=== PATIENT | male | born 1960 | race Caucasian/White ===

== ENCOUNTER 2019-03-08 06:52 | Day surgery (SDC) | payer OTHER ==
[2019-03-04 13:23] VITALS: BMI 34.5
[~2019-03-08 06:52] MED LIST: BUPIVACAINE 0.25% /EPI 1:200,000 10 ML VIAL INF ONE
[2019-03-08] MEDS ORDERED: BUPIVACAINE HCL/EPINEPHRINE/PF 30 ML VIAL IJ ONE (07:30)
[2019-03-08] MEDS ORDERED: fentaNYL CITRATE 250 MCG/5 ML VIAL ONE (08:40)
[2019-03-08] MEDS ORDERED: SUCCINYLCHOLINE CHLORIDE 200 MG/10 ML SYRINGE ONE (08:40)
[2019-03-08] MEDS ORDERED: PROPOFOL 20 ML ONE ×2 (08:40)
[2019-03-08] MEDS ORDERED: MIDAZOLAM HCL 2 MG/2 ML SINGLE DOSE VIAL ONE (08:41)
[2019-03-08] MEDS ORDERED: ceFAZolin SODIUM 1 GM VIAL IVPB ONE (08:59)
[2019-03-08] MEDS ORDERED: ceFAZolin SODIUM 1 GM VIAL ONE (09:01)
[2019-03-08] MEDS ORDERED: BUPIVACAINE 0.25% /EPI 1:200,000 10 ML VIAL INF ONE (09:18)
[2019-03-08] MEDS ORDERED: ePHEDrine SULFATE 50 MG/1 ML AMPULE ONE (09:27)
[2019-03-08] MEDS ORDERED: LACTATED RINGERS SOLUTION 1,000 ML IV SCH (10:00)
[2019-03-08] MEDS ORDERED: oxyCODONE HCL 5 MG TABLET PO PRN ×2 (10:00)
[2019-03-08] MEDS ORDERED: ONDANSETRON 4 MG/2 ML VIAL IVPUSH PRN (10:00)
--- NOTE | 2019-03-08 10:04 | DS ---
Physical Examination Vital Signs: Vital Signs Temperature 98.6 F 03/08/19 07:10 Pulse Rate 68 03/08/19 07:10 Respiratory Rate 18 03/08/19 07:10 Blood Pressure 140/96 03/08/19 07:10 O2 Sat by Pulse Oximetry (%) 96 03/08/19 07:10 Discharge Summary Reason For Visit: RIGHT KNEE ARTHROSCOPY PARTIAL MENISCECTOMY VS. ME Condition: Good - Instructions Diet, Activity, Other Instructions: Post Operative Instructions: Knee Arthroscopy Dr Jesus Hinojosa 1. Pain following an arthroscopy is variable. Some patients will have more pain than others. You have been provided with a prescription for medication that contains a narcotic. You are not allowed to drive while on this medication. You should NOT take Tylenol (Acetaminophen) when taking the pain medication ( it will result in an overdose). Feel free to take medications such as Ibuprofen or Naprosyn in addition to the pain medicine if you do not have any problems with the NSAID class of medications. 2. You are allowed to remove the bandages and shower in 24 hours unless directed otherwise. You are not allowed to bathe or go swimming until the sutures are removed. Put band-aids on the sutures after your shower and do not put any creams or lotions over the incisions. 3. You are allowed to put all your weight on the leg and bend your knee 4. Apply ice to the knee for 15 min every hour or so. You may continue this for as many days as you like. 5. Please call the office to schedule a visit to have your sutures removed. 6. If for any reason you believe you may have an infection or are concerned, please feel free to call me. I can be reached through our office number 24 hours a day. 7. Please call our office with any questions; we will review the surgical findings during your post operative visit. Disposition: HOME - Home Medications Comprehensive Discharge Medication List: Ambulatory Orders Multivitamins [Tab-A-Vit -] 1 tab PO DAILY 03/04/19
--- NOTE | 2019-03-08 10:04 | OP ---
Operative Note - Note: Operative Date: 03/08/19 Pre-Operative Diagnosis: Right knee MMT, early medial OA Operation: RKA, PMM, synovectomy, PRP injection Post-Operative Diagnosis: Same as Pre-op Surgeon: Jesus Hinojosa Anesthesia: General Operative Report Dictated: Yes
[2019-03-08 10:39] VITALS: TEMP 97.9
[2019-03-08] MEDS ORDERED: ACETAMINOPHEN 325 MG TABLET (FP) PO ONE ×2 (10:45→10:48)
[2019-03-08] MEDS ORDERED: ACETAMINOPHEN 325 MG TABLET (FP) ONE (10:48)
[2019-03-08 11:17] VITALS: BP 125/79
[2019-03-08 12:21] VITALS: PULSE 78
--- NOTE | 2019-03-13 11:27 | PATH ---
Surgical Pathology Report Patient Name: DEVAN BAZAN [facility]. Rec. #: [id number] /Age/Gender: 1960 (Age: 58) / M Account: [id number] Location: [facility] AMBULATORY Taken: 03/08/2019 Received: 03/08/2019 Reported: 03/13/2019 Physicians: Jesus Hinojosa M.D. Specimen(s) Received SHAVINGS RIGHT KNEE Clinical History Tear medial meniscus of knee, osteoarthritis of right knee joint Final Diagnosis RIGHT KNEE SHAVINGS: FIBROSYNOVIAL AND CARTILAGINOUS TISSUE WITH FOCAL FIBROSIS AND DEGENERATIVE CHANGE. Electronically Signed José Miguel Gay M.D. Gross Description Received in formalin, labeled "right knee shavings" are multiple irregular portions of white and yellow soft tissue measuring 2.0 x 2.0 x 0.3 cm in aggregate. M1A1 [employer] portions are submitted in toto in one cassette. KEVEN/03/11/2019 jerome/03/11/2019
== END 2019-03-08 11:55 | disposition home or self-care (01) ==
LOC: FASU 06:52
PROVIDERS: ATTEND Orthopaedic Surgery
PROC: 0SBC4ZZ Excision of Right Knee Joint, Percutaneous Endoscopic Approach (ICD-10-PCS; 2019-03-08)
PROC: 3E0U3GC Introduction of Other Therapeutic Substance into Joints, Percutaneous Approach (ICD-10-PCS; 2019-03-08)
PROC: 0SBC4ZZ Excision of Right Knee Joint, Percutaneous Endoscopic Approach (ICD-10-PCS; principal; 2019-03-08 08:30)
DX: S83.241A Other tear of medial meniscus, current injury, right knee, initial encounter (principal); M65.861 Other synovitis and tenosynovitis, right lower leg; M17.11 Unilateral primary osteoarthritis, right knee; X58.XXXA Exposure to other specified factors, initial encounter; Y93.9 Activity, unspecified; Y92.9 Unspecified place or not applicable
CPT/HCPCS: 0232T; 29881; 88304-TC; 94760